=== PATIENT | female | born 1995 | race Caucasian/White ===

== ENCOUNTER 2023-12-26 12:14 | Inpatient (IN) | payer BC, SELFPAY ==
[2023-12-26] VITALS (15 sets, daily range): BP systolic 116–140; BP diastolic 70–101; PULSE 71–109; RESP 16–24; TEMP 36.4–36.8; O2SAT 92–100
--- NOTE | ~2023-12-26 | XR_ITS ---
EXAMINATION: XR chest 1V portable Exam Date/Time: 12/26/2023 17:45 CDT HISTORY: wheezing, shortness of breath Comparison: None. RESULT: Lines, tubes, and devices: None. Lungs and pleura: Clear. Cardiomediastinal silhouette: Normal. Other: No acute osseous or upper abdominal finding. IMPRESSION: No acute cardiopulmonary process. Reviewed, dictated and finalized at location K.
--- NOTE | ~2023-12-26 | XR_ITS ---
EXAM: XR hand RT min 3V DATE: 12/26/2023 18:04 HISTORY: cat bite . COMPARISON: None available. FINDINGS: Normal mineralization. No fracture or dislocation. No lytic or blastic lesion. Joint space s are maintained. Subchondral cysts in the scaphoid and lunate. No erosion or periosteal change. Dors al soft tissue swelling. IMPRESSION: No acute osseous finding in the right hand. No soft tissue radiopaque foreign body or sub cutaneous gas. Reviewed, dictated and finalized at location K. IMPRESSION: No acute osseous finding in the right hand. No soft tissue radiopaq ue foreign body or subcutaneous gas.
--- NOTE | ~2023-12-26 | CT_ITS ---
EXAMINATION: CTA chest PE protocol DATE: 12/26/2023 20:54 INDICATION: Hypoxia TECHNIQUE: Computed tomography angiography (CTA) of the chest was performed with 100 mL Omnipaque-350 intravenous contrast timed to evaluate the pulmonary arteries. Coronal maximum intensity projection 3D-reconstructions were created by the technologist. The dose-length product (DLP) was 465.82 mGy-cm. Automated exposure control and iterative reconstruction technique were employed. COMPARISON: X-ray chest, same date. FINDINGS: Lung parenchyma and airways: Scattered patchy areas of subsegmental groundglass opacity involving all lobes. The airways are clear. Pleura: Unremarkable. Thoracic inlet, axillae and chest wall: Unremarkable. Thoracic aorta: No significant dilation. No dissection. Mediastinum: Normal. Heart and pericardium: Normal. Coronary artery calcifications: Absent. Upper abdomen: No significant finding. Bones: No acute osseous finding. Pulmonary arteries: Study quality: Mild motion artifact throughout the lungs, overall diagnostic. No pulmonary emboli detected. IMPRESSION: No CT evidence of acute pulmonary embolus. Patchy subsegmental areas of groundglass opacity in all lung lobes, may represent atypical infection or pneumonitis. Reviewed, dictated and finalized at location K. IMPRESSION: No CT evidence of acute pulmonary embolus. Patchy subsegmental areas of groundglass opacity in all lung lobes, may represe nt atypical infection or pneumonitis.
--- NOTE | 2023-12-26 17:25 | ECG_ITS ---
Test Date: 2023-12-26 17:47:40 Measurements Intervals [place] Rate: 83 P: 66 ID: [id number] QRS: 70 QRSD: 93 T: 38 QT: 380 QTc: 449 Interpretive Statements SINUS RHYTHM WITH SINUS ARRHYTHMIA BORDERLINE ST-T WAVE ABNORMALITY- INFERIOR LEADS BASELINE ARTIFACT- I, II, III, AVL BORDERLINE ECG No previous ECG available for comparison Electronically Signed On 12-27-2023 08:52:07 CDT by Tejas Tello D.O.
--- NOTE | 2023-12-26 17:29 | ED.ANIMALBIT ---
HPI - Animal Bite General Chief Complaint: Animal Bite <Jaylene Patten, SHAPING MACHINE TENDER - Last Filed: 12/26/23 17:45> Stated Complaint: cat bite <Jaylene Patten SHAPING MACHINE TENDER - Last Filed: 12/26/23 17:45> Time Seen by Provider: 12/26/23 17:20 <Jayelne Patten SHAPING MACHINE TENDER - Last Filed: 12/26/23 17:45> Focused HPI: Patient is a 28-year-old female who presents to the ER with complaints of an unvaccinated cat bite to her right hand. Upon arrival to the ER patient began experiencing shortness of breath. She history of asthma, but denies DVTs. Patient has been using her rescue inhaler 5 to 6 times a day without much relief. She reports she thinks she had a viral illness last week. Patient endorses back pain and increased urination. Patient denies chest pain or signs of infection on her right hand. GENERAL: Well-appearing, well-nourished, and in no acute distress. HEAD: Normocephalic, atraumatic. CHEST: Wheezing to auscultation. ?Mild respiratory distress. HEART: Regular rate and rhythm.? NEURO: ?Alert and oriented x3. Patient screened in triage and initial orders placed.? ?Additional care and disposition to be based upon?diagnostic testing and treatment. <Jaylene Patten, SHAPING MACHINE TENDER - Last Filed: 12/26/23 17:45> Focused HPI: Patient is a 28-year-old female who presents to the ER with complaints of an unvaccinated cat bite to her right hand. Upon arrival to the ER patient began experiencing shortness of breath. She history of asthma, but denies DVTs. Patient has been using her rescue inhaler 5 to 6 times a day without much relief. She reports she thinks she had a viral illness last week. Patient endorses back pain and increased urination. Patient denies chest pain or signs of infection on her right hand. GENERAL: Well-appearing, well-nourished, and in no acute distress. HEAD: Normocephalic, atraumatic. CHEST: Wheezing to auscultation. ?Mild respiratory distress. HEART: Regular rate and rhythm.? NEURO: ?Alert and oriented x3. Patient screened in triage and initial orders placed.? ?Additional care and disposition to be based upon?diagnostic testing and treatment. Note: I agree with the HPI as noted in the MSE above <Bi Bernard MD - Last Filed: 12/26/23 19:13> Related Data Home Medications: Home Medications Medication Instructions Recorded Confirmed albuterol sulfate 90 mcg/actuation 1 - 2 puff inhalation Q6H PRN 12/27/23 12/27/23 aerosol inhaler Wheezing beclomethasone dipropionate 80 2 inh inhalation DAILY 12/27/23 12/27/23 mcg/actuation HFA breath activated aerosol (Qvar RediHaler) sertraline 100 mg tablet 100 mg PO HS 12/27/23 12/27/23 <Jaylene Patten APRN - Last Filed: 12/26/23 17:45> Allergies/Adverse Reactions: Allergies Allergy/AdvReac Type Severity Reaction Status Date / Time No Known Allergies Allergy Verified 12/26/23 18:20 <Jaylene Patten APRN - Last Filed: 12/26/23 17:45> Review of Systems Review of Systems: All systems reviewed & are unremarkable except as noted in HPI and below <Bi Bernard MD - Last Filed: 12/26/23 19:13> [facility] Past Medical History Medical History: Medical History Asthma <Jaylene Patten APRN - Last Filed: 12/26/23 17:45> Surgical History Surgical History: Surgical History No significant past surgical history <Jaylene Patten APRN - Last Filed: 12/26/23 17:45> Family History Family History: Family History (Updated 12/27/23 @ 02:15 by Zo Kumar RN) Grandparent Cerebrovascular accident Diabetes mellitus Father Cerebrovascular accident <Jaylene Patten APRN - Last Filed: 12/26/23 17:45> Social History Social History: Social History Smoking status: Never smoker Alcohol int
[2023-12-26] MEDS: IPRATROPIUM 0.5 MG/ALBUTEROL SULFATE 2.5 MG AMPUL.NEB 3 ML 6 ML INHALATION (17:40)
[2023-12-26] MEDS: ALBUTEROL SULFATE NEB 2.5 MG/3 ML INH 10 MG INHALATION ×2 (18:02→19:05)
--- NOTE | 2023-12-26 18:11 | ED.ANIMALBIT ---
HPI - Animal Bite General Chief Complaint: Animal Bite Stated Complaint: cat bite Time Seen by Provider: 12/26/23 17:20 Source: patient Mode of arrival: ambulatory Limitations: no limitations History of Present Illness HPI narrative: This is a 28-year-old female, with history of asthma, who presents to the emergency department complaining of cough with shortness of breath as well as a CT by today. The patient states for the past week she has had wheezing and shortness of breath without improvement with her albuterol inhalers. She states today her cat bit her. She states her last tetanus vaccination was 2 years ago. She complains of mild mid back pain and increased urination. She has no other complaints at this time. Review of Systems Review of Systems: Last menstrual period October 2023 All systems reviewed & are unremarkable except as noted in HPI and below PMFSH Past Medical History Medical History Asthma Surgical History Surgical History No significant past surgical history Social History Social History Smoking status: Current every day smoker Alcohol intake: current Substance use: never Exam Narrative: GENERAL: Well-developed, well-nourished, and in no acute distress. HEAD: Normocephalic, atraumatic. EYES: PERRLA and EOMI. CHEST: Full cycle wheeze with good aeration bilaterally. No rales or rhonchi HEART: Regular rate and rhythm. No murmur heard. Normal peripheral pulses. ABDOMEN: Soft, nontender, nondistended, normal active bowel sounds. EXTREMITIES: There are 2 puncture wounds noted over the dorsal aspect of the right hand with no noted bleeding or purulent drainage. There is no palpable crepitus. Range of motion of all fingers intact. Normal range of motion. No edema. SKIN: Warm, dry, no rash. NEURO: Alert and oriented x3. No focal deficit. Moving all 4 limbs spontaneously PSYCH: Normal mood and affect. Course Vital Signs Vital signs: Vital Signs Temperature 98.3 F 12/26/23 12:35 Pulse Rate 82 12/26/23 12:35 Respiratory Rate 16 12/26/23 12:35 Blood Pressure 140/101 H 12/26/23 12:35 Pulse Oximetry 97 12/26/23 12:35 Oxygen Delivery Room Air 12/26/23 12:35 Temperature 98.3 F 12/26/23 12:35 Pulse Rate 87 12/26/23 18:02 Respiratory Rate 20 12/26/23 18:02 Blood Pressure 133/87 12/26/23 17:30 Pulse Oximetry 96 12/26/23 17:33 Oxygen Delivery Nasal Cannula 12/26/23 17:33 Oxygen Flow Rate 2 12/26/23 17:33 MDM - Animal Bite MDM Narrative Medical decision making narrative: Plan: Nebs, labs, imaging, pain control, antibiotics, IV steroids, reassess Differential Diagnosis Differential diagnosis: Likely cat bite and other (Asthma exacerbation, pneumonia, PE, , metabolic abnormality, fracture, retained foreign object, other) ECG Data EKG #1: Attestation: I personally reviewed and interpreted this ECG as follows: ECG completion date: 12/26/23 ECG completion time: 17:47 Prior ECG tracings: not available for review Interpretation: Sinus rhythm, rate 83, normal axis, no ST segment elevations or T-wave inversions concerning for ischemia, normal intervals with QTC of 420. Discharge Plan Discharge Clinical Impression: Cat bite Qualifiers: Encounter type: initial encounter Qualified Code(s): W55.01XA - Bitten by cat, initial encounter Asthma exacerbation Qualifiers: Asthma severity: moderate Asthma persistence: persistent Qualified Code(s): J45.41 - Moderate persistent asthma with (acute) exacerbation Patient Disposition: Home, Self-Care Condition: Stable Instructions: Antibiotic Form Follow-up/Referrals: Pradeep Lacey MD [Primary Care Provider] -
[2023-12-26] MEDS: Please add drug allergy info to patient profile. 1 EACH XX (18:21)
[2023-12-26] MEDS: methylPREDNISolone SOD SUCC 125 MG VIAL IV PUSH (18:21)
[2023-12-26 18:26] LABS: Basophils Absolute Auto 0.1 K/mm3 (0.0-0.1); Basophils Percent Auto 0.9 % (0.2-1.2); Eosinophils Absolute Auto 1.3 K/mm3 (0-0.3); Eosinophils Percent Auto 11.3 % (0-4.4); Hematocrit 46.7 % (37.0-47.0); Hemoglobin 15.4 g/dL (12.0-15.0); Immature Granulocyte Absolute 0.03 K/mm3 (0.00-0.031); Immature Granulocyte Percent A 0.3 % (0-0.5); Lymphocytes Absolute Auto 3.16 K/mm3 (0.9-3.2); Lymphocytes Percent Auto 26.5 % (18.3-44.2); Mean Corpuscular Hemoglobin 29.6 pg (26-34); Mean Corpuscular Volume 89.8 fl (80-100); Mean Platelet Volume 10.1 fl (7.4-10.4); Monocytes Absolute Auto 0.8 K/mm3 (0.1-0.6); Monocytes Percent Auto 6.7 % (2.6-8.5); Neutrophils Absolute Auto 6.5 K/mm3 (1.3-6.7); Neutrophils Percent Auto 54.3 % (45.5-73.1); Platelet Count Result 306 k/mm3 (150-375); Red Cell Distribution Width 12.4 % (11.5-14.5); White Blood Count 11.9 K/mm3 (4.5-10.0)
[2023-12-26 18:38] LABS: Alanine Aminotransferase 16 U/L (6-35); Alkaline Phosphatase 82 U/L (38-126); Anion Gap 11 mmol/L (4-12); Aspartate Amino Transferase 30 U/L (14-36); Bilirubin,Total 0.8 mg/dL (0.2-1.3); Blood Urea Nitrogen 8 mg/dL (7-17); Calcium 9.3 mg/dL (8.4-10.2); Carbon Dioxide 28 mmol/L (22-30); Chloride 102 mmol/L (98-107); Estimated Glomerular Filt Rate > 60; Glucose 103 mg/dL (65-110); Potassium 3.4 mmol/L (3.4-5.0); Sodium 141 mmol/L (137-145)
[2023-12-26 18:41] LABS: Prothrombin Time 13.9 Seconds (11.1-14.7)
[2023-12-26 18:42] LABS: Partial Thromboplastin Time 28.4 Seconds (22.3-36.8)
[2023-12-26 18:47] LABS: D Dimer 0.51 ug/mL (<0.48)
[2023-12-26 19:36] LABS: Lactic Acid Reflex 1.1 mmol/L (0.7-2.0)
[2023-12-26 19:54] LABS: Add Urine Microscopic? YES; Appearance Urine Clear (Clear); Bacteria Urine None Seen /hpf; Bilirubin Urine Negative (Negative); Blood Urine 3+ (Negative); Color Urine Yellow (Yellow); Glucose Urine UA Negative (Negative); Ketones Urine 2+ mg/dL (Negative); Leukocyte Esterase Ur 1+ LEU/UL (Negative); Nitrate Urine Negative (Negative); Non Pathogenic Casts 0-2; Protein Urine Negative (Negative); RBC Urine 21-50 /hpf (0-2); Specific Grav Ur 1.014 (1.001-1.035); Squamous Epithelial Cell Urine Few /hpf (Few); Urobilinogen Urine 0.2 mg/dL (<2.0); pH Urine 5.5 (5.0-9.0)
[2023-12-26 20:57] LABS: Troponin I < 0.012 ng/mL (0.000-0.034)
[2023-12-26] MEDS: cefTRIAXone 2 GM/NS 100 ML 2 GM/100 ML BAG IVPB (22:53)
[2023-12-26] MEDS: DOXYCYCLINE HYCLATE 100 MG TABLET PO (23:21)
[2023-12-27] VITALS (13 sets, daily range): BP systolic 98–138; BP diastolic 53–88; PULSE 92–121; RESP 16–22; TEMP 36.2–36.8; O2SAT 93–97; BMI 36.2
[2023-12-27] MEDS: IPRATROPIUM 0.5 MG/ALBUTEROL SULFATE 2.5 MG AMPUL.NEB 3 ML INHALATION ×2 (00:09→14:36)
[2023-12-27] MEDS: MAGNESIUM SULF 2 GM/WATER 50ML 2 GM/50 ML BAG IVPB (00:09)
[2023-12-27] MEDS: predniSONE 20 MG TABLET 60 MG PO (01:11)
--- NOTE | 2023-12-27 01:53 | ADMGEN ---
This patient, Frances Demarco, was admitted to Medical Room 342-01. Patient/family oriented to hospital policies and general routines including ID bracelet, bed and alarms, visiting hours, pain management, procedures, bathroom and other care routines, personal items, smoking policy, room service/diet, and visiting hours. Information on how to activate the Rapid Response Team has been discussed. Patient/Family are encouraged to report perceived risks to care and to ask questions if they do not understand what they are told or what they should do.
[2023-12-27] MEDS: DOXYCYCLINE HYCLATE 100 MG TABLET PO ×2 (09:42→20:10)
[2023-12-27 10:37] LABS: SARS-CoV-2 RNA PCR Negative (Negative)
--- NOTE | 2023-12-27 13:49 | PM.IMHP ---
H&P: HPI History of Present Illness Date/Time: 12/27/23 10:00 Chief Complaint: Patient is a 28 year old female that presented to the ER with a cat bite to her right hand and shortness of breath. Patient reported that cat is unvaccinated. Patient reports that she was having wheezing when she arrived. Patient had been using her rescue inhaler 5-6 times a day for the past 1 1/2 weeks. Patient was unable to locate her Qvar inhaler but has now located it. Patient reported in the ER that she had a viral illness last week. Patient reports shortness of breath on exertion, cough with white to light green sputum, dizziness, and some palpitations with inhaler. Patient reports a headache that is a 2 , constant, and aching. Patient vapes marijuana 3-4 times a day and drinks 1-2 drinks on social occasions. Denies chest pain, nausea, or vomiting. Review of Systems Review of Systems: All systems reviewed & are unremarkable except as noted in HPI and below PMFSH Past Medical History Medical History Asthma Surgical History Surgical History No significant past surgical history Family History Family History (Updated 12/27/23 @ 02:15 by Zo Kumar RN) Grandparent Cerebrovascular accident Diabetes mellitus Father Cerebrovascular accident Social History Social History Smoking status: Never smoker Alcohol intake: former Substance use: never Substance use type: marijuana Other substance usage details: daily use of marfloydana Do You Feel Safe in your Home?: Yes Lack of Transportation: No Lack of Food: Sometimes True Current Housing: I Have Housing Concerned About Future Housing: No Difficulty Paying Gas/Electric Bills: No Difficulty Paying for Meds: No Currently Unemployed: No Education: High School Diploma/GED Difficulty w/ Childcare or Family Care: No Spiritual care concerns: No Meds Home Medications and Allergies Home Medications Medication Instructions Recorded Confirmed Type albuterol sulfate 90 mcg/actuation 1 - 2 puff inhalation Q6H PRN 12/27/23 12/27/23 History aerosol inhaler Wheezing beclomethasone dipropionate 80 2 inh inhalation DAILY 12/27/23 12/27/23 History mcg/actuation HFA breath activated aerosol (Qvar RediHaler) sertraline 100 mg tablet 100 mg PO HS 12/27/23 12/27/23 History Allergies Allergy/AdvReac Type Severity Reaction Status Date / Time No Known Allergies Allergy Verified 12/26/23 18:20 Vital Signs Vital Signs - 24 hr 12/26/23 17:30 12/26/23 17:32 12/26/23 17:33 Temperature Pulse Rate 93 Respiratory Rate 19 Blood Pressure 133/87 Pulse Oximetry 95 96 96 Oxygen Delivery Nasal Cannula Nasal Cannula Oxygen Flow Rate 2 2 12/26/23 17:40 12/26/23 18:02 12/26/23 19:03 Temperature Pulse Rate 89 87 93 Respiratory Rate 20 20 23 H Blood Pressure Pulse Oximetry Oxygen Delivery Oxygen Flow Rate 12/26/23 17:32 12/26/23 19:01 12/26/23 20:27 Temperature Pulse Rate 90 90 99 Respiratory Rate 24 H 19 20 Blood Pressure 133/87 127/74 Pulse Oximetry 95 100 Oxygen Delivery Oxygen Flow Rate 12/26/23 20:41 12/26/23 19:47 12/26/23 20:16 Temperature 97.6 F Pulse Rate 71 109 H 98 Respiratory Rate 18 22 H 18 Blood Pressure 116/97 H 133/70 138/78 Pulse Oximetry 98 97 99 Oxygen Delivery Oxygen Flow Rate 12/26/23 20:31 12/26/23 22:54 12/26/23 23:13 Temperature Pulse Rate 86 106 H Respiratory Rate 19 20 Blood Pressure 124/82 133/80 Pulse Oximetry 95 92 93 Oxygen Delivery Room Air Oxygen Flow Rate 12/27/23 00:09 12/27/23 00:20 12/27/23 01:26 Temperature Pulse Rate 92 121 H Respiratory Rate 20 20 Blood Pressure Pulse Oximetry 93 Oxygen Delivery Room Air Oxygen Flow Rate 12/27/23
[2023-12-27] MEDS: SERTRALINE HCL 50 MG TABLET 100 MG PO (20:10)
[2023-12-27] MEDS: LEVALBUTEROL NEB 1.25 MG/3 ML INHALATION (21:49)
[2023-12-28] VITALS (16 sets, daily range): BP systolic 108–123; BP diastolic 58–77; PULSE 71–112; RESP 16–20; TEMP 36.2–36.9; O2SAT 96–99
[2023-12-28] MEDS: LEVALBUTEROL NEB 1.25 MG/3 ML INHALATION ×2 (03:05→07:25)
[2023-12-28 05:53] LABS: Basophils Absolute Auto 0.1 K/mm3 (0.0-0.1); Basophils Percent Auto 0.3 % (0.2-1.2); Eosinophils Absolute Auto 0.1 K/mm3 (0-0.3); Eosinophils Percent Auto 0.7 % (0-4.4); Hematocrit 40.8 % (37.0-47.0); Hemoglobin 12.7 g/dL (12.0-15.0); Immature Granulocyte Absolute 0.09 K/mm3 (0.00-0.031); Immature Granulocyte Percent A 0.5 % (0-0.5); Lymphocytes Absolute Auto 3.14 K/mm3 (0.9-3.2); Lymphocytes Percent Auto 16.5 % (18.3-44.2); Mean Corpuscular HGB Conc 31.1 g/dl (32-36); Mean Corpuscular Hemoglobin 29.1 pg (26-34); Mean Corpuscular Volume 93.4 fl (80-100); Mean Platelet Volume 10.2 fl (7.4-10.4); Monocytes Absolute Auto 1.1 K/mm3 (0.1-0.6); Monocytes Percent Auto 5.8 % (2.6-8.5); Neutrophils Absolute Auto 14.5 K/mm3 (1.3-6.7); Neutrophils Percent Auto 76.2 % (45.5-73.1); Platelet Count Result 287 k/mm3 (150-375); Red Blood Count 4.37 M/mm3 (4.2-5.4); Red Cell Distribution Width 12.9 % (11.5-14.5)
[2023-12-28 06:08] LABS: Alanine Aminotransferase 15 U/L (6-35); Alkaline Phosphatase 58 U/L (38-126); Anion Gap 11 mmol/L (4-12); Aspartate Amino Transferase 20 U/L (14-36); Bilirubin,Total 0.1 mg/dL (0.2-1.3); Blood Urea Nitrogen 18 mg/dL (7-17); Calcium 8.4 mg/dL (8.4-10.2); Carbon Dioxide 21 mmol/L (22-30); Chloride 109 mmol/L (98-107); Estimated Glomerular Filt Rate > 60; Glucose 150 mg/dL (65-110); Potassium 2.9 mmol/L (3.4-5.0); Sodium 141 mmol/L (137-145)
[2023-12-28] MEDS: POTASSIUM CHLORIDE 20 MEQ ER TABLET 40 MEQ PO (09:11)
[2023-12-28] MEDS: DOXYCYCLINE HYCLATE 100 MG TABLET PO (09:11)
[2023-12-28] MEDS: VANCOMYCIN 2,000 MG/NS 500 ML 2,000 MG/500 ML BAG 250 MG IVPB (11:26)
[2023-12-28] MEDS: SACCHAROMYCES BOULARDII 250 MG CAPSULE PO (11:26)
[2023-12-28 12:49] LABS: MRSA (PCR) NOT DETECTED (NOT DETECTE)
--- NOTE | 2023-12-28 15:44 | PM.IMPN ---
Progress Note: A&P Assessment and Plan (1) Asthma exacerbation: Qualifiers: Asthma persistence: persistent Asthma severity: moderate Qualified Code(s): J45.41 - Moderate persistent asthma with (acute) exacerbation Code(s): J45.901 - Unspecified asthma with (acute) exacerbation Status: Acute Assessment and Plan: - duoneb q 6 hours (2) Cat bite: Qualifiers: Encounter type: initial encounter Qualified Code(s): W55.01XA - Bitten by cat, initial encounter Code(s): W55.01XA - Bitten by cat, initial encounter Status: Acute Assessment and Plan: - Doxycycline 100 mg PO q12. - Keep site clean and dry. - Monitor site. - Monitor labs. (3) Pneumonia: Code(s): J18.9 - Pneumonia, unspecified organism Status: Acute Assessment and Plan: - WBC increased from 11.9 to 19.0 - Stop Ceftriaxone 1 gm IVPB daily and Doxycycline 100 mg PO q 12. - Changed antibiotics to Unasyn 3 mg ivpb q 6 and Vancomycin 1,500 mg q 12. - Add Florastor probiotic. - Add Guaifenesin 600 mg PO q 12. - Duoneb q 6 hours. - Blood cultures no growth to date. - Urine cx negative. - Monitor labs. Subjective Date/time seen: 12/28/23 15:44 Interval history: Patient reports that she feels heart palpitations at times. Reports a bowel movement today that was soft. Patient denies chest pain, headache, dizziness, nausea, or vomiting. Patient reports a cough with mucus but she has swallowed it, instead of coughing it up. Review of Systems Review of Systems: All systems reviewed & are unremarkable except as noted in HPI and below Exam Const: General: no acute distress Eyes: Sclera: sclerae normal Neck: Neck: supple Resp: Auscultation: diminished lung sounds bilateral in the lower lung griffin Cardio: Rate: regular rate Rhythm: regular rhythm GI: GI Palp: Yes Soft to palpation Auscultation: normal bowel sounds : Other: voiding without difficulty Skin: Other: Two puncture wounds noted to her right hand. No current drainage. Hand with trace edema between puncture sites. No redness or warmth. Neuro: Speech: normal speech Extrem: General: normal to inspection Psych: Mental Status: mental status grossly normal Affect: normal affect Objective Data Vital Signs Vital Signs: Vital Signs - 24 hr 12/27/23 16:00 12/27/23 19:30 12/27/23 20:28 Temperature 98.2 F Pulse Rate 106 H 106 H Respiratory Rate 18 Blood Pressure 126/80 Pulse Oximetry 97 Oxygen Delivery Room Air 12/27/23 21:49 12/27/23 20:00 12/28/23 00:00 Temperature Pulse Rate 105 H 109 H 98 Respiratory Rate 16 Blood Pressure Pulse Oximetry Oxygen Delivery 12/28/23 03:05 12/28/23 03:15 12/28/23 05:46 Temperature 98.4 F Pulse Rate 97 95 75 Respiratory Rate 16 16 16 Blood Pressure 108/58 L Pulse Oximetry 97 Oxygen Delivery 12/28/23 04:00 12/28/23 07:25 12/28/23 07:25 Temperature Pulse Rate 112 H 105 H 105 H Respiratory Rate 18 18 Blood Pressure Pulse Oximetry 96 Oxygen Delivery Room Air 12/28/23 07:33 12/28/23 09:11 12/28/23 08:00 Temperature Pulse Rate 101 H 77 Respiratory Rate 18 Blood Pressure Pulse Oximetry Oxygen Delivery Room Air 12/28/23 12:00 12/28/23 13:25 12/28/23 14:00 Temperature 97.8 F Pulse Rate 78 89 101 H Respiratory Rate 18 16 Blood Pressure 120/77 Pulse Oximetry 99 Oxygen Delivery Intake/Output Intake/Output: Intake & Output 12/25/23 12/26/23 12/27/23 12/28/23 23:59 23:59 23:59 23:59 Intake Total 100 2160 1070 Output Total 1000 400 Balance 100 1160 670 Meds/Results Medications: Active Medications Generic Name Dose Route Start Last Admin Trade Name Freq PRN Reason Stop Dose Admin Fluticasone Propionate 2 puff 12/28/23 20:00 Fluticasone Prop 44 Mcg (*Sp) 10.6 Gm INHALATION [facility] Guaifenesin 600 mg 12/28/23 21:00
--- NOTE | 2023-12-28 18:38 | PC.NURSE ---
RN spoke with Don Rabago as IV access was lost on patient. Patient only received roughly 3/4 of vanc loading dose due to IV infiltrating. Monon was able to place a midline. Pharmacist Gem stated to document what was given in bag, do not finish bag as next dose is close, and patient will remain on scheduled doses moving forward. Trough will be adjusted as needed.
[2023-12-28] MEDS: AMPICILLIN SULB 3 GM/NS 100 ML 3 GM/100 ML VIAL IVPB ×2 (18:47→23:47)
[2023-12-28] MEDS: FLUTICASONE PROP 44 MCG (*SP) 10.6 GM 2 PUFF INHALATION (19:47)
[2023-12-28] MEDS: SERTRALINE HCL 50 MG TABLET 100 MG PO (21:07)
[2023-12-28] MEDS: guaiFENesin 12 HR 600 MG TABCR PO (21:07)
[2023-12-28] MEDS: VANCOMYCIN 1,500 MG/NS 500 ML 1,500 MG/500 ML BAG 250 MG IVPB (21:07)
[2023-12-28] MEDS: SALINE LOCK FLUSH 10 ML IV PUSH (21:08)
[2023-12-29] VITALS (10 sets, daily range): BP systolic 110–135; BP diastolic 61–76; PULSE 60–87; RESP 18–20; TEMP 36.2–36.7; O2SAT 97–99
[2023-12-29] MEDS: AMPICILLIN SULB 3 GM/NS 100 ML 3 GM/100 ML VIAL IVPB ×4 (05:49→23:56)
[2023-12-29] MEDS: SALINE LOCK FLUSH 10 ML IV PUSH ×3 (06:02→21:53)
[2023-12-29 06:05] LABS: Basophils Absolute Auto 0.1 K/mm3 (0.0-0.1); Basophils Percent Auto 0.8 % (0.2-1.2); Eosinophils Absolute Auto 0.9 K/mm3 (0-0.3); Eosinophils Percent Auto 9.1 % (0-4.4); Hematocrit 41.9 % (37.0-47.0); Hemoglobin 13.1 g/dL (12.0-15.0); Immature Granulocyte Absolute 0.05 K/mm3 (0.00-0.031); Immature Granulocyte Percent A 0.5 % (0-0.5); Lymphocytes Absolute Auto 3.79 K/mm3 (0.9-3.2); Lymphocytes Percent Auto 36.7 % (18.3-44.2); Mean Corpuscular HGB Conc 31.3 g/dl (32-36); Mean Corpuscular Hemoglobin 29.2 pg (26-34); Mean Corpuscular Volume 93.5 fl (80-100); Mean Platelet Volume 10.1 fl (7.4-10.4); Monocytes Absolute Auto 0.6 K/mm3 (0.1-0.6); Monocytes Percent Auto 6.1 % (2.6-8.5); Neutrophils Absolute Auto 4.8 K/mm3 (1.3-6.7); Neutrophils Percent Auto 46.8 % (45.5-73.1); Platelet Count Result 271 k/mm3 (150-375); Red Blood Count 4.48 M/mm3 (4.2-5.4); Red Cell Distribution Width 13.1 % (11.5-14.5); White Blood Count 10.3 K/mm3 (4.5-10.0)
[2023-12-29 06:31] LABS: Alanine Aminotransferase 13 U/L (6-35); Albumin Level 3.3 g/dL (3.5-5.1); Alkaline Phosphatase 51 U/L (38-126); Anion Gap 5 mmol/L (4-12); Aspartate Amino Transferase 22 U/L (14-36); Bilirubin,Total 0.3 mg/dL (0.2-1.3); Blood Urea Nitrogen 8 mg/dL (7-17); Calcium 8.2 mg/dL (8.4-10.2); Carbon Dioxide 25 mmol/L (22-30); Chloride 107 mmol/L (98-107); Estimated Glomerular Filt Rate > 60; Glucose 92 mg/dL (65-110); Potassium 4.2 mmol/L (3.4-5.0); Sodium 137 mmol/L (137-145)
[2023-12-29] MEDS: FLUTICASONE PROP 44 MCG (*SP) 10.6 GM 2 PUFF INHALATION ×2 (08:45→21:01)
[2023-12-29] MEDS: SACCHAROMYCES BOULARDII 250 MG CAPSULE PO (09:02)
[2023-12-29] MEDS: VANCOMYCIN 1,500 MG/NS 500 ML 1,500 MG/500 ML BAG 250 MG IVPB ×2 (09:02→21:52)
[2023-12-29] MEDS: guaiFENesin 12 HR 600 MG TABCR PO ×2 (09:02→20:33)
--- NOTE | 2023-12-29 11:52 | PM.IMPN ---
Progress Note: A&P Assessment and Plan (1) Asthma exacerbation: Qualifiers: Asthma persistence: persistent Asthma severity: moderate Qualified Code(s): J45.41 - Moderate persistent asthma with (acute) exacerbation Code(s): J45.901 - Unspecified asthma with (acute) exacerbation Status: Acute Assessment and Plan: - Fluticasone Propionate 2 puffs q 12 - Levalbuterol HFA 2 puffs q 6 PRN. (2) Cat bite: Qualifiers: Encounter type: initial encounter Qualified Code(s): W55.01XA - Bitten by cat, initial encounter Code(s): W55.01XA - Bitten by cat, initial encounter Status: Acute Assessment and Plan: - Unasyn 3 gm ivpb q 6. - Keep site clean and dry. - Monitor site. - Monitor labs. (3) Pneumonia: Code(s): J18.9 - Pneumonia, unspecified organism Status: Acute Assessment and Plan: - WBC improved 10.3 - Unasyn 3 mg ivpb q 6 and Vancomycin 1,500 mg q 12. - Add Florastor probiotic. - Guaifenesin 600 mg PO q 12. - Fluticasone Propionate 2 puffs q 12 - Levalbuterol HFA 2 puffs q 6 PRN. - Blood cultures no growth to date. - Urine cx negative. - Monitor labs. (4) Headache: Code(s): R51.9 - Headache, unspecified Status: Acute Assessment and Plan: - Tylenol PRN. - Hydrate. Subjective Date/time seen: 12/29/23 11:52 Interval history: Patient denies chest pain, palpitations, dizziness, nausea, or vomiting. Patient reports a headache that is a 2 , constant, and aching. Patient reports she did have an episode of nausea last evening. Last bowel movement yesterday. Patient reports that Guaifenesin is helping to thin her secretions. Review of Systems Review of Systems: All systems reviewed & are unremarkable except as noted in HPI and below Exam Const: General: comfortable and no acute distress Eyes: Sclera: sclerae normal Neck: Neck: supple Resp: Effort & Inspection: normal respiratory effort Auscultation: diminished lung sounds bilateral in the lower lung griffin Cardio: Rate: regular rate Rhythm: regular rhythm Other: Telemetry- SR 77. GI: GI Palp: Yes Soft to palpation Auscultation: normal bowel sounds : Other: Voiding without difficulty Skin: Other: Two puncture wounds noted to her right hand. No current drainage. Hand with trace edema between puncture sites. No redness or warmth. Neuro: Speech: normal speech Extrem: General: normal to inspection Psych: Mental Status: mental status grossly normal Affect: normal affect Objective Data Vital Signs Vital Signs: Vital Signs - 24 hr 12/28/23 12:00 12/28/23 13:25 12/28/23 14:00 Temperature 97.8 F Pulse Rate 78 89 101 H Respiratory Rate 18 16 Blood Pressure 120/77 Pulse Oximetry 99 Oxygen Delivery 12/28/23 16:00 12/28/23 19:53 12/28/23 19:54 Temperature Pulse Rate 90 93 93 Respiratory Rate 18 Blood Pressure Pulse Oximetry 97 Oxygen Delivery Room Air 12/28/23 21:52 12/28/23 21:00 12/28/23 20:00 Temperature 97.2 F L Pulse Rate 71 94 Respiratory Rate 20 Blood Pressure 123/64 Pulse Oximetry 99 Oxygen Delivery Room Air 12/29/23 00:00 12/29/23 04:00 12/29/23 06:00 Temperature 98.0 F Pulse Rate 86 74 60 Respiratory Rate 20 Blood Pressure 114/70 Pulse Oximetry 98 Oxygen Delivery 12/29/23 08:48 12/29/23 08:48 12/29/23 09:02 Temperature Pulse Rate 87 Respiratory Rate 18 Blood Pressure Pulse Oximetry 97 Oxygen Delivery Room Air Room Air 12/29/23 08:00 Temperature Pulse Rate 71 Respiratory Rate Blood Pressure Pulse Oximetry Oxygen Delivery Intake/Output Intake/Output: Intake & Output 12/26/23 12/27/23 12/28/23 12/29/23 23:59 23:59 23:59 23:59 Intake Total 100 2160 2385 940 Output Total 8135 349 5936 Balance 100 1160 1685 -160 Meds/Results Medications: Active Medications Generic Name Dose Route Start
[2023-12-29 14:24] LABS: BEDSIDEPREGUCG Negative (Negative)
[2023-12-29] MEDS: SERTRALINE HCL 50 MG TABLET 100 MG PO (20:33)
[2023-12-29] MEDS: ONDANSETRON INJ 4 MG/2 ML VIAL IV PUSH (21:01)
[2023-12-29 21:33] LABS: Vancomycin Trough 9.3 ug/mL (10.0-20.0)
[2023-12-30] VITALS: PULSE 82
[2023-12-30 04:00] VITALS: PULSE 57
[2023-12-30] MEDS: AMPICILLIN SULB 3 GM/NS 100 ML 3 GM/100 ML VIAL IVPB (05:18)
[2023-12-30] MEDS: SALINE LOCK FLUSH 10 ML IV PUSH (05:54)
[2023-12-30] MEDS: VANCOMYCIN 1,500 MG/NS 500 ML 1,500 MG/500 ML BAG 250 MG IVPB (05:54)
[2023-12-30 06:00] VITALS: BP 102/62; PULSE 79; RESP 20; TEMP 36.1; O2SAT 99
[2023-12-30 08:00] VITALS: PULSE 57
[2023-12-30 08:29] LABS: Alanine Aminotransferase 13 U/L (6-35); Albumin Level 3.4 g/dL (3.5-5.1); Alkaline Phosphatase 60 U/L (38-126); Anion Gap 8 mmol/L (4-12); Aspartate Amino Transferase 19 U/L (14-36); Bilirubin,Total 0.3 mg/dL (0.2-1.3); Blood Urea Nitrogen 9 mg/dL (7-17); Calcium 8.4 mg/dL (8.4-10.2); Carbon Dioxide 24 mmol/L (22-30); Chloride 105 mmol/L (98-107); Estimated Glomerular Filt Rate > 60; Glucose 99 mg/dL (65-110); Sodium 137 mmol/L (137-145)
[2023-12-30 08:30] LABS: Basophils Absolute Auto 0.1 K/mm3 (0.0-0.1); Eosinophils Percent Auto 12.4 % (0-4.4); Hematocrit 40.4 % (37.0-47.0); Hemoglobin 12.9 g/dL (12.0-15.0); Immature Granulocyte Absolute 0.03 K/mm3 (0.00-0.031); Immature Granulocyte Percent A 0.4 % (0-0.5); Lymphocytes Absolute Auto 3.27 K/mm3 (0.9-3.2); Lymphocytes Percent Auto 39.3 % (18.3-44.2); Mean Corpuscular HGB Conc 31.9 g/dl (32-36); Mean Corpuscular Hemoglobin 29.1 pg (26-34); Monocytes Absolute Auto 0.4 K/mm3 (0.1-0.6); Monocytes Percent Auto 5.2 % (2.6-8.5); Neutrophils Absolute Auto 3.5 K/mm3 (1.3-6.7); Neutrophils Percent Auto 41.7 % (45.5-73.1); Platelet Count Result 272 k/mm3 (150-375); Red Blood Count 4.44 M/mm3 (4.2-5.4); Red Cell Distribution Width 12.4 % (11.5-14.5); White Blood Count 8.3 K/mm3 (4.5-10.0)
[2023-12-30] MEDS: AMOXICILLIN/CLAVULANATE K 875-125 MG TAB 1 TABLET PO (09:53)
[2023-12-30] MEDS: SACCHAROMYCES BOULARDII 250 MG CAPSULE PO (09:53)
[2023-12-30] MEDS: DOXYCYCLINE HYCLATE 100 MG TABLET PO (09:53)
[2023-12-30] MEDS: guaiFENesin 12 HR 600 MG TABCR PO (09:53)
[2023-12-30 12:00] VITALS: PULSE 83
--- NOTE | 2023-12-30 12:38 | PM.DS ---
DS: Admitting Diagnosis Discharge Date 12/30/23 Admitting Diagnosis Cat bite shortness of breath DS: Discharge Diagnosis Discharge Diagnosis (1) Pneumonia: Code(s): J18.9 - Pneumonia, unspecified organism Status: Acute (2) Asthma exacerbation: Qualifiers: Asthma persistence: persistent Asthma severity: moderate Qualified Code(s): J45.41 - Moderate persistent asthma with (acute) exacerbation Code(s): J45.901 - Unspecified asthma with (acute) exacerbation Status: Acute (3) Cat bite: Qualifiers: Encounter type: initial encounter Qualified Code(s): W55.01XA - Bitten by cat, initial encounter Code(s): W55.01XA - Bitten by cat, initial encounter Status: Acute DS: Summary Hospital Course Hospital Course: CT PE was ordered by previous physician which showed no acute pulmonary embolism but bilateral patchy opacities consistent with pneumonia. X-ray of the hand not concerning for fracture, or retained foreign object. Patient started on IV antibiotics and responded well. Patient transitioned to oral antibiotics. Status at Discharge Functional status at discharge: independent ambulation Overall status at discharge: patient is progressing back to baseline Time Spent with Patient Time attestation: Total time spent providing and/or coordinating discharge services: Time spent: Greater than 30 minutes Exam Const: General: comfortable and no acute distress Neck: Neck: supple Resp: Auscultation: diminished lung sounds bilateral in the lower lung griffin Cardio: Rate: regular rate Rhythm: regular rhythm Other: Telemetry SR 77. GI: GI Palp: Yes Soft to palpation Auscultation: normal bowel sounds Skin: Other: Two puncture wounds noted to her right hand. No current drainage. Hand with trace edema between puncture sites. No redness or warmth. Extrem: General: normal to inspection Psych: Mental Status: mental status grossly normal Affect: normal affect DS: Data Data Completed and Pending Labs on day of discharge: Labs from last 24 hours 12/30/23 12/29/23 12/26/23 08:09 20:58 19:41 WBC 8.3 RBC 4.44 Hgb 12.9 Hct 40.4 MCV 91.0 MCH 29.1 MCHC 31.9 L RDW 12.4 Plt Count 272 MPV 10.0 Immature Gran % (Auto) 0.4 Neut % (Auto) 41.7 L Lymph % (Auto) 39.3 Ada % (Auto) 5.2 Eos % (Auto) 12.4 H Baso % (Auto) 1.0 Lymph # (Auto) 3.27 H Ada # (Auto) 0.4 Eos # (Auto) 1.0 H Baso # (Auto) 0.1 Abs Immat Gran (auto) 0.03 Absolute Neuts (auto) 3.5 Absolute Nucleated RBC 0.000 Nucleated RBC % 0.0 Sodium 137 Potassium 4.0 Chloride 105 Carbon Dioxide 24 Anion Gap 8 BUN 9 Creatinine 0.50 L Estim Creat Clear Calc Not Reportable Estimated GFR > 60 Glucose 99 Calcium 8.4 Total Bilirubin 0.3 AST 19 ALT 13 Alkaline Phosphatase 60 Total Protein 6.0 L Albumin 3.4 L POC Urine HCG, Qual Negative Vancomycin Trough 9.3 L Preliminary micro results at discharge 12/26/23 18:14 Blood Culture - Preliminary Blood 12/26/23 18:14 Blood Culture - Preliminary Blood Discharge Plan Discharge Attending physician on discharge: Obdulio De La Paz Discharging Clinician: [place] Adkins Anticipated Discharge Date/Time: 12/30/23 14:00 Patient Disposition: Home, Self-Care Activity: may shower Diet: regular Discharge Instructions: - Take all doses of antibiotics. - Call provider if you develop fever or worsening shortness of breath not improved with inhalers. - Keep cat bite area clean and dry. Report to provider if you develop redness, swelling, or drainage from hand. Patient Instructions: Antibiotic Form, Asthma (DC), Animal Bite (DC), Pneumonia (DC) Stand Alone Forms: General Discharge Information Follow-up/Referrals: Pradeep Lacey MD [Primary Care Provider] - 1 Week Discharge Medications: New
[2023-12-30] MEDS: NEOMYCIN/POLYMYXIN/BACITRACIN OINTMENT PACKET 1 PACKET (13:10)
== END 2023-12-30 14:20 | disposition home or self-care (01) | DRG 202 ==
LOC: ANHED 18:28 → ANH3MED 12-27 01:10
PROVIDERS: Registered Nurse; Admitting Provider Internal Medicine; Emergency Provider Preventive Medicine Aerospace Medicine; PCP Emergency Medicine; Visit Provider Nurse Practitioner Family
DX: J45.41 Moderate persistent asthma with (acute) exacerbation (principal); J18.9 Pneumonia, unspecified organism; S61.451A Open bite of right hand, initial encounter; F12.90 Cannabis use, unspecified, uncomplicated; Z20.822 Contact with and (suspected) exposure to COVID-19; W55.01XA Bitten by cat, initial encounter
CPT/HCPCS: 36415; 36569; 71045; 71275; 73130; 80053; 80202; 81001; 81025; 83605; 83735; 84484; 85025; 85380; 85610; 85730; 87040; 87086; 87635; 87641; 93005; 94640; 96365; 96366; 96367; 96375; 99285; A9270; C1751; G0378; J0295; J0696; J2405; J2919; J3370; J3475; J7512; Q9967

== ENCOUNTER 2024-02-17 10:01 | Outpatient (CLI) | payer BC, SELFPAY | END 2024-02-17 10:02 | disposition home or self-care (01) | PROVIDERS: PCP Nurse Practitioner Family; Visit Provider Nurse Practitioner Family | DX: H91.90 Unspecified hearing loss, unspecified ear (principal); H93.19 Tinnitus, unspecified ear | CPT/HCPCS: 92557; 92567 ==

== ENCOUNTER 2024-03-17 16:01 | Outpatient (CLI) | payer BC, SELFPAY ==
[2024-03-17 16:31] LABS: Hematocrit 46.6 % (37.0-47.0); Mean Corpuscular HGB Conc 32.2 g/dl (32-36); Mean Corpuscular Hemoglobin 29.4 pg (26-34); Mean Corpuscular Volume 91.2 fl (80-100); Mean Platelet Volume 9.9 fl (7.4-10.4); Platelet Count Result 268 k/mm3 (150-375); Red Blood Count 5.11 M/mm3 (4.2-5.4); Red Cell Distribution Width 12.6 % (11.5-14.5); White Blood Count 6.7 K/mm3 (4.5-10.0)
[2024-03-17 16:37] LABS: Bacteria Urine None Seen /hpf; Non Pathogenic Casts 0-2; RBC Urine >100 /hpf (0-2); Squamous Epithelial Cell Urine Occasional /hpf (Few); WBC Urine 0-5 /hpf (0-3)
[2024-03-17 16:50] LABS: Alanine Aminotransferase 16 U/L (6-35); Albumin Level 4.7 g/dL (3.5-5.1); Alkaline Phosphatase 73 U/L (38-126); Anion Gap 4 mmol/L (4-12); Aspartate Amino Transferase 30 U/L (14-36); Bilirubin,Total 0.4 mg/dL (0.2-1.3); Blood Urea Nitrogen 14 mg/dL (7-17); Calcium 9.5 mg/dL (8.4-10.2); Carbon Dioxide 26 mmol/L (22-30); Chloride 106 mmol/L (98-107); Cholesterol 232 mg/dL (0-200); Estimated Glomerular Filt Rate > 60; Glucose 91 mg/dL (65-110); HDL Direct 64 mg/dL; Potassium 4.1 mmol/L (3.4-5.0); Sodium 136 mmol/L (137-145); Triglycerides 70 mg/dL (<150)
[2024-03-17 16:53] LABS: Hemoglobin A1C 5.6 % (<5.7)
[2024-03-17 17:00] LABS: LDL Cholesterol Direct 128 mg/dL
[2024-03-17 17:06] LABS: Beta HCG Quantitative < 2.39 mIU/ML
[2024-03-17 17:20] LABS: Add Urine Microscopic? YES; Appearance Urine Cloudy (Clear); Bilirubin Urine Negative (Negative); Blood Urine 3+ (Negative); Glucose Urine UA Negative (Negative); Ketones Urine Negative (Negative); Leukocyte Esterase Ur Trace LEU/UL (Negative); Nitrate Urine Negative (Negative); Protein Urine Trace mg/dL (Negative); Specific Grav Ur 1.021 (1.001-1.035); Urobilinogen Urine 0.2 mg/dL (<2.0)
[2024-03-17 17:58] LABS: Color Urine Amber (Yellow)
[2024-03-18 10:32] LABS: FSH 6.9 mIU/mL; LH 8.8 mIU/mL; Prolactin 5.7 ng/mL
== END 2024-03-17 16:02 | disposition home or self-care (01) ==
LOC: ANHLAB 16:02
PROVIDERS: PCP Nurse Practitioner Family; Visit Provider Nurse Practitioner Family
DX: Z00.00 Encounter for general adult medical examination without abnormal findings (principal); J45.909 Unspecified asthma, uncomplicated; N39.3 Stress incontinence (female) (male); R35.0 Frequency of micturition; H91.90 Unspecified hearing loss, unspecified ear; H93.19 Tinnitus, unspecified ear; G47.00 Insomnia, unspecified; N93.9 Abnormal uterine and vaginal bleeding, unspecified; Z68.37 Body mass index [BMI] 37.0-37.9, adult; Z76.89 Persons encountering health services in other specified circumstances; Z13.1 Encounter for screening for diabetes mellitus; Z13.220 Encounter for screening for lipoid disorders; Z13.29 Encounter for screening for other suspected endocrine disorder
CPT/HCPCS: 36415; 80053; 80061; 81001; 82670; 83001; 83002; 83036; 84146; 84443; 84702; 85027; 87086